=== PATIENT | female | born 1945 | race Caucasian/White ===

== ENCOUNTER → 2016-10-20 | Day surgery (SDC) | payer MEDICARE, BC ==
[~2016-10-20] MED LIST: CYMB60CA PO; FLUTI44I INH; GABA300C5 PO; IBUP800T23 PO; IMIT50TA PO; LIDOCAINE HCL 1% 30 ML VIAL INFIL ONE; MONT10TA2 PO; MULT-120 PO; OMEP20TA PO; PROPOFOL 200 MG/20 ML AMP IV ONE; ROSU5 PO; SODIUM CHLORIDE 0.9% 10 ML VIAL ONE; VERA120T3 PO; VIST25CA PO; methylPREDNISolone ACETATE 80 MG/ML VIAL ONE
--- NOTE | 2016-10-21 13:25 | M6 ---
cc: VAHE MOLINA M.D. DATE: 10/20/2016 DATE OF : 1945 PROCEDURE Fluoroscopically guided L3-4 translaminar epidural steroid injection. PROCEDURE NOTE History and physical was completed and signed. Consent was signed. Procedure site was marked. Medications were listed and reconciled. Pain score was recorded. Allergies were noted. Timeout was taken. Fluoroscopy time was recorded where applicable. Sedation was administered or directed by Dr. Molina. The patient was given oxygen. The patient was monitored by a registered nurse. Total procedure time was greater than 15 minutes. An IV was started, blood pressure cuff, pulse oximeter and EKG were applied. The patient was placed in the prone position on a [place] table, sedated with small amounts of propofol titrated to effect. Vital signs were monitored and remained stable throughout the procedure. The lumbar area was prepped with alcohol and 10% Betadine solution, draped with sterile drapes. Fluoroscopy was used to visualize the L3-4 translaminar space. The skin was infiltrated with 1% Xylocaine using a 27-gauge needle. Then a 3-1/2 inch, 18-gauge Lovell needle was advanced using fluoroscopic guidance and the [id number] technique into the epidural space at L3-4 slightly to the right of the midline. There was negative aspiration for blood or any other type of fluid and the patient was given 10 mL of 0.5% Xylocaine, 80 mg of Depo-Medrol. Following this the patient was taken to the recovery room with stable vital signs, neurologically intact. WMD BRITT Huizar/ANA /10:49 AM /1:24 PM
== END | disposition home or self-care (01) ==
LOC: PHSDC 09:06
PROVIDERS: ATTEND Pain Medicine Interventional Pain Medicine
DX: M54.5 Low back pain (principal)
CPT/HCPCS: 62323; 99152; J1040